=== PATIENT | male | born 1995 | race Two or more races ===

== ENCOUNTER 2020-02-02 12:00 | Inpatient (IN) | payer OTHER ==
[2020-02-16] MEDS ORDERED: INFLECTRA100 MG IV (12:19)
[2020-03-15] MEDS ORDERED: MELOXICAM15 MG (15:11)
[2020-03-22] MEDS ORDERED: VANCOMYCIN HCL125 MG PO (13:20)
[2020-03-22] MEDS ORDERED: INTESTINEX680 M1 PO (13:20)
[2020-03-22] MEDS ORDERED: QUESTRAN PACKET4 GM PO (13:21)
== END 2020-03-22 14:04 | disposition home or self-care (01) | DRG 331 ==
LOC: SURH 02-23 09:15 → O/R 03-15 10:07 → SURH 03-15 10:07
PROVIDERS: ADMIT Surgery; ATTEND Surgery
PROC: 0DTB4ZZ Resection of Ileum, Percutaneous Endoscopic Approach (ICD-10-PCS; 2020-03-15)
PROC: 4A12X4Z Monitoring of Cardiac Electrical Activity, External Approach (ICD-10-PCS; 2020-03-15)
PROC: 0DTK4ZZ Resection of Ascending Colon, Percutaneous Endoscopic Approach (ICD-10-PCS; principal; 2020-03-15 07:00)
PROC: 8E0ZXY6 Isolation (ICD-10-PCS; 2020-03-19)
DX: K50.012 Crohn's disease of small intestine with intestinal obstruction (principal); Z20.828 Contact with and (suspected) exposure to other viral communicable diseases; A04.72 Enterocolitis due to Clostridium difficile, not specified as recurrent; N99.89 Other postprocedural complications and disorders of genitourinary system; R33.8 Other retention of urine; S30.810A Abrasion of lower back and pelvis, initial encounter